=== PATIENT | female | born 1965 | race Caucasian/White ===

== ENCOUNTER 2024-01-15 12:24 | Inpatient (IN) | payer OTHER ==
[~2024-01-15] VITALS: Ht 157.5 cm; Wt 98.9 kg
[2024-01-15 12:34] VITALS: TEMP 99.2
[2024-01-15 13:25] LABS: BASOPHILS # (AUTO) 0.1 (0.0-0.1); BASOPHILS % 0.6 % (0.0-1.0); EOSINOPHILS # (AUTO) 0.3 (0.0-0.4); EOSINOPHILS % 2.5 % (0.0-6.0); HEMATOCRIT 42.9 % (34.2-44.1); HEMOGLOBIN 13.7 g/dL (12.0-16.0); LYMPHOCYTES # (AUTO) 2.1 (1.0-3.2); LYMPHOCYTES % 17.1 % (18.0-39.1); MEAN CORPUSCULAR HEMOGLOBIN 31.4 pg (28-32); MEAN CORPUSCULAR HGB CONC 31.9 g/dL (31-35); MEAN CORPUSCULAR VOLUME 98.4 fL (81-99); MONOCYTES # (AUTO) 1.8 (0.2-0.8); MONOCYTES % 15.1 % (4.4-11.3); NEUTROPHILS # (AUTO) 7.9 (2.1-6.9); NEUTROPHILS % 64.5 % (38.7-80.0); PLATELET COUNT 244 x10e3/uL (140-360); RED BLOOD COUNT 4.36 x10e6/uL (3.6-5.1); RED CELL DISTRIBUTION WIDTH 14.4 % (11.7-14.4); WHITE BLOOD COUNT 12.19 x10e3/uL (4.8-10.8)
[2024-01-15 13:31] LABS: INR 1.07; PROTHROMBIN TIME 14.6 seconds (11.9-14.5)
[2024-01-15 13:32] LABS: PARTIAL THROMBOPLASTIN TIME 30.7 seconds (23.8-35.5)
[2024-01-15 13:39] LABS: ALBUMIN 3.2 g/dL (3.5-5.0); ALBUMIN/GLOBULIN RATIO 0.9 (0.8-2.0); ANION GAP 15.5 mmol/L (8-16); BILIRUBIN,TOTAL 1.8 mg/dL (0.2-1.2); CALCIUM 9.7 mg/dL (8.4-10.2); CREATININE, SERUM 0.74 mg/dL (0.57-1.11); POTASSIUM 3.5 mmol/L (3.5-5.1); TOTAL PROTEIN 6.7 g/dL (6.5-8.1)
[2024-01-15 13:41] VITALS: PULSE 74; RESP 20
[2024-01-15 13:45] LABS: TROPONIN I 0.003 ng/mL (0-0.300)
[2024-01-15] MEDS ORDERED: ALBUTEROL/IPRATROPIUM 3 ML NEB NEB PRN (14:45)
[2024-01-15 15:35] VITALS: PULSE 74; RESP 16; O2SAT 93
[2024-01-15] MEDS ORDERED: ONDANSETRON HCL INJ 2MG/ML 2ML 2 MG/ML VIAL IV PRN (18:15)
[2024-01-15] MEDS ORDERED: ZOLPIDEM TARTRATE 5 MG TAB PO PRN (18:15)
[2024-01-15 18:30] VITALS: BP 145/88; PULSE 78; RESP 20; TEMP 98.3; O2SAT 93
[2024-01-15] MEDS: ALBUTEROL/IPRATROPIUM 3 ML NEB NEB SCH (19:00)
[2024-01-15 20:42] VITALS: PULSE 82; RESP 16; O2SAT 94
[2024-01-15] MEDS: ACETAMINOPHEN 325 MG TAB PO PRN (21:14)
[2024-01-15] MEDS: METHYLPREDNISOLONE SOD SUCC 125 MG/2ML VIAL IV ONE ×2 (23:10→23:23)
[2024-01-15 23:14] VITALS: PULSE 81; RESP 16; O2SAT 94
[2024-01-15] MEDS ORDERED: METHOTREXATE2.5 MG PO (23:56)
[2024-01-15] MEDS ORDERED: SULINDAC200 MG PO (23:56)
[2024-01-15] MEDS ORDERED: ULTRAM 50MG50 MG PO (23:56)
[2024-01-15] MEDS ORDERED: LISINOPRIL10 MG PO (23:56)
[2024-01-15] MEDS ORDERED: LEVOTHYROXINE175 MCG PO (23:56)
[2024-01-15] MEDS ORDERED: CITALOPRAM HBR40 MG PO (23:56)
[2024-01-15] MEDS ORDERED: ATORVASTATIN CA40 MG PO (23:56)
[2024-01-16] VITALS (12 sets, daily range): BP systolic 115–148; BP diastolic 58–99; PULSE 72–90; RESP 15–22; TEMP 97.9–98.7; O2SAT 94–100
[2024-01-16] MEDS ORDERED: POLYETHYLENE GLYCOL 3350 17 GM PACK PO PRN (00:30)
[2024-01-16] MEDS ORDERED: ACETAMINOPHEN 325 MG TAB PO PRN (00:30)
[2024-01-16] MEDS ORDERED: HYDRALAZINE HCL 20 MG/ML VIAL IV PRN (00:30)
[2024-01-16 07:03] LABS: BASOPHILS % 0.3 % (0.0-1.0); HEMATOCRIT 40.9 % (34.2-44.1); LYMPHOCYTES % 11.5 % (18.0-39.1); MEAN CORPUSCULAR HEMOGLOBIN 31.3 pg (28-32); MEAN CORPUSCULAR HGB CONC 31.8 g/dL (31-35); MEAN CORPUSCULAR VOLUME 98.3 fL (81-99); MONOCYTES # (AUTO) 0.2 (0.2-0.8); MONOCYTES % 1.7 % (4.4-11.3); NEUTROPHILS # (AUTO) 7.6 (2.1-6.9); NEUTROPHILS % 85.9 % (38.7-80.0); PLATELET COUNT 240 x10e3/uL (140-360); RED BLOOD COUNT 4.16 x10e6/uL (3.6-5.1); WHITE BLOOD COUNT 8.82 x10e3/uL (4.8-10.8)
[2024-01-16 07:35] LABS: ALBUMIN/GLOBULIN RATIO 0.9 (0.8-2.0); ANION GAP 14.7 mmol/L (8-16); BILIRUBIN,TOTAL 1.5 mg/dL (0.2-1.2); CALCIUM 9.7 mg/dL (8.4-10.2); CREATININE, SERUM 0.65 mg/dL (0.57-1.11); POTASSIUM 3.7 mmol/L (3.5-5.1); TOTAL PROTEIN 6.5 g/dL (6.5-8.1)
[2024-01-16 07:59] LABS: TROPONIN I 0.008 ng/mL (0-0.300)
[2024-01-16 08:19] LABS: PHOSPHORUS 3.7 MG/DL (2.3-4.7)
[2024-01-16 08:39] LABS: FREE T4 (FREE THYROXINE) 1.53 ng/dL (0.8-1.8); THYROID STIMULATING HORMONE 0.022 uIU/mL (0.350-4.940)
[2024-01-16 09:10] LABS: LYMPHOCYTES % (MANUAL) 5 % (19-48); NEUTROPHILS % (MANUAL) 95 % (40-74); PLATELET ESTIMATE ADEQUATE; PLATELET MORPHOLOGY COMMENT NORMAL; RBC MORPHOLOGY COMMENT NORMAL
[2024-01-16] MEDS: SODIUM CHLORIDE 0.9% 1000ML 1,000 ML IV STA (09:17)
[2024-01-16] MEDS: FAMOTIDINE 20 MG TAB PO SCH (09:21)
[2024-01-16] MEDS: DOCUSATE SODIUM 100 MG CAP PO SCH (09:21)
[2024-01-16] MEDS: CITALOPRAM HYDROBROMIDE 20 MG TAB PO SCH (11:47)
[2024-01-16] MEDS: LISINOPRIL 10 MG TAB PO SCH (11:48)
[2024-01-16] MEDS: ATORVASTATIN 40 MG TAB PO SCH (11:49)
[2024-01-16] MEDS: LEVOTHYROXINE SODIUM 50 MCG TAB PO SCH (11:49)
[2024-01-16] MEDS: TRAMADOL HCL 50 MG TAB PO PRN (11:55)
[2024-01-16 15:37] LABS: TROPONIN I 0.007 ng/mL (0-0.300)
[2024-01-16 15:47] LABS: BILIRUBIN,URINE NEGATIVE (NEGATIVE); CLARITY,URINE CLOUDY (CLEAR); COLOR,URINE YELLOW (YELLOW); GLUCOSE, URINE NEGATIVE (NEGATIVE); KETONES,URINE NEGATIVE (NEGATIVE); LEUKOCYTE ESTERASE ,URINE 2+ (NEGATIVE); NITRITE,URINE NEGATIVE (NEGATIVE); PH,URINE 7 (5 - 7); PROTEIN,URINE DIPSTICK NEGATIVE (NEGATIVE); URINE UROBILINOGEN 1 mg/dL (0.2 - 1)
[2024-01-16 15:56] LABS: BACTERIA,URINE MANY /HPF; RBC,URINE 21-50 /HPF (0-5); WBC,URINE (MAN) >50 /HPF (0-5)
[2024-01-16 15:57] LABS: EPITHELIAL CELLS,URINE MANY /LPF; RENAL EPITHELIAL CELLS,URINE MODERATE; TRANSITIONAL EPI CELLS,URINE FEW
[2024-01-17] VITALS (7 sets, daily range): BP systolic 114–133; BP diastolic 70–91; PULSE 77–111; RESP 16–22; TEMP 98.3–99.5; O2SAT 93–99
[2024-01-17] MEDS ORDERED: LEVOTHYROXINE SODIUM 125 MCG TAB ONE (06:30)
[2024-01-17] MEDS ORDERED: LEVOTHYROXINE SODIUM 25 MCG TABLET ONE (06:31)
[2024-01-17] MEDS: IBUPROFEN 200 MG TAB PO SCH (13:38)
[2024-01-17] MEDS ORDERED: SULINDAC 200 MG TAB PO SCH (17:00)
[2024-01-18] MEDS ORDERED: AZITHROMYCIN 250 MG TAB PO SCH (09:00)
[2024-01-19 21:07] LABS: MYCOPLASMA PNEUMO IGG 694 U/mL (0-99); MYCOPLASMA PNEUMO IGM <770 U/mL (0-769)
[2024-01-22 14:29] LABS: CHLAMYDIA TRACHOMATIS IGM <1:10; CHLAMYDOPHILA PSITTACI IGM <1:10
== END 2024-01-17 19:30 | disposition home or self-care (01) | DRG 193 ==
LOC: ER 12:30 → ERHOLD 14:40 → MED/SURG3 16:58
PROVIDERS: ADMIT Internal Medicine; ATTEND Internal Medicine
DX: J18.9 Pneumonia, unspecified organism (principal); J96.21 Acute and chronic respiratory failure with hypoxia; D84.81 Immunodeficiency due to conditions classified elsewhere; J44.0 Chronic obstructive pulmonary disease with (acute) lower respiratory infection; M06.9 Rheumatoid arthritis, unspecified; I10 Essential (primary) hypertension; E03.9 Hypothyroidism, unspecified; F32.A Depression, unspecified; F41.9 Anxiety disorder, unspecified; E87.6 Hypokalemia; Z11.52 Encounter for screening for COVID-19; Z79.60 Long term (current) use of unspecified immunomodulators and immunosuppressants; Z87.891 Personal history of nicotine dependence; Z88.0 Allergy status to penicillin; Z62.819 Personal history of unspecified abuse in childhood
CPT/HCPCS: 36415; 71045; 71260; 80053; 80061; 81001; 82550; 83036; 83605; 83735; 83880; 84100; 84439; 84443; 84484; 85025; 85379; 85610; 85730; 86631; 86738; 87040; 87400; 87449; 93005; 94799; 99284; J0692; J0696; J2919; J7050; U0002